=== PATIENT | female | born 1935 | race Two or more races ===

== ENCOUNTER 2017-02-04 07:53 | Day surgery (SDC) ==
[2017-02-04] MEDS ORDERED: DIPRIVAN 20 ML VIAL IVP ONE (10:15)
[2017-02-04] MEDS ORDERED: VERSED ONE (10:15)
[2017-02-04 11:54] VITALS: BP 163/69; TEMP 97.1
--- NOTE | 2017-02-04 14:19 | OP ---
PROCEDURE: COLONOSCOPY TO THE CECUM. ENDOSCOPIST: Dante FITCH M.D. INDICATION: HISTORY OF POLYPS. INSTRUMENT: [email or web address]. MEDICATION: PER ANESTHESIA. PROCEDURE: The patient was positioned for colonoscopy. The digital rectal exam was negative. The colonoscope was inserted through the anus and advanced to the cecum. The cecum was identified using the ileocecal valve and the appendiceal orifice as landmarks. The scope was slowly withdrawn through an adequately prepped colon. Careful inspection was made of each colonic segment as the scope is withdrawn in a circumferential fashion. Care was taken to inspect the proximal side of the ileocecal valve, haustral folds, flexures and rectal valves. Diverticula are seen scattered throughout the colon. The retroflex exam was otherwise negative. Withdrawal time was 7 minutes, 17 seconds. PLAN: 1. Given her age, I doubt that repeat colonoscopy is warranted. Will see her back as needed. CC: DR. CANDY KAPLAN
== END 2017-02-04 11:45 | disposition home or self-care (01) ==
LOC: SURG 07:53
PROVIDERS: ATTEND Internal Medicine Gastroenterology
DX: Z09 Encounter for follow-up examination after completed treatment for conditions other than malignant neoplasm (principal); Z86.010 Personal history of colon polyps; K57.30 Diverticulosis of large intestine without perforation or abscess without bleeding; E11.9 Type 2 diabetes mellitus without complications
CPT/HCPCS: 00810; G0105; 82962

== ENCOUNTER 2018-07-12 16:52 | Emergency (ER) ==
[2018-07-12 17:08] VITALS: BP 125/70; TEMP 98.4; BMI 24.7
--- NOTE | 2018-07-12 17:48 | ED.PDOC ---
General ED Provider: Dr. SOLIS ALLISON Chief Complaint: Non-specific Complaint Stated Complaint: possible insulin needle in the right abdominal wall(RLQ) Time Seen by Physician: 17:00 Mode of Arrival: Walk-In Information Source: Patient Exam Limitations: No limitations Primary Care Provider: RAMEZ PARKER Nursing and Triage Documentation Reviewed and Agree: Yes Does patient meet sepsis criteria?: Yes If yes, has appropriate treatment been initiated?: No System Inflammatory Response Syndrome: Not Applicable Sepsis Protocol: For patient's 13 years and over: Temp is 96.8 and below OR 101 and greater Pulse >90 BPM Resp >20/minute Acutely Altered Mental Status Are patient's symptoms suggestive of a new infection, such as: -Pneumonia -Skin, Soft Tissue -Endocarditis -UTI -Bone, Joint Infection -Implantable Device -Acute Abdominal Infection -Wound Infection -Meningitis -Blood Stream Catheter Infection -Unknown Trauma/Injury Complaint Exam - Trauma Complaint/Exam Location of Pain or Injury: Reports: Other (NEEDLE IN RLQ ABDOMINAL WALL) Onset/Duration: TODAY Symptoms Are: Resolved Current Severity: None Character: Reports: Dull Aggravating: Reports: None Alleviating: Reports: None Associated Signs and Symptoms: Denies: LOC, Confusion, Memory loss, Lethargy, Vomiting, Bleeding, Bruising, Swelling, Extremity disuse, Painful respiration, Hoarseness, Dysphagia, Hemoptysis, Significant blood loss Review of Systems - Review Of Systems Constitutional: Reports: No symptoms Eyes: Reports: No symptoms Ears, Nose, Mouth, Throat: Reports: No symptoms Respiratory: Reports: No symptoms Cardiac: Reports: No symptoms GI: Reports: No symptoms : Reports: No symptoms Musculoskeletal: Reports: No symptoms Skin: Reports: No symptoms Neurological: Reports: No symptoms Endocrine: Reports: No symptoms Hematologic/Lymphatic: Reports: No symptoms All Other Systems: Reviewed and Negative Past Medical History - Past Medical History Previously Healthy: Yes Endocrine: Reports: None Cardiovascular: Reports: None Respiratory: Reports: None Hematological: Reports: None Gastrointestinal: Reports: Other (LIVER TRANSPLANT) Genitourinary: Reports: None Neuro/Psych: Reports: None Musculoskeletal: Reports: None Cancer: Reports: None Last Menstrual Period: unknown - Surgical History General Surgical History: Reports: None - Family History Family History: Reports: None - Social History Smoking Status: Never smoker Hx Substance Use: No Alcohol Screening: None Physical Exam - Physical Exam Appearance: Well-appearing, No pain distress, Well-nourished Eyes: PAT, EOMI, Conjunctiva clear ENT: Ears normal, Nose normal, Oropharynx normal Respiratory: Airway patent, Breath sounds clear, Breath sounds equal, Respirations nonlabored Cardiovascular: RRR, Pulses normal, No rub, No murmur GI/: Soft, Nontender, No masses, Bowel sounds normal, No Organomegaly Musculoskeletal: Normal strength, ROM intact, No edema, No calf tenderness Skin: Warm, Dry, Normal color Neurological: Sensation intact, Motor intact, Reflexes intact, Cranial nerves intact, Alert, Oriented Psychiatric: Affect appropriate, Mood appropriate Interpretation - Radiology Interpretation Radiology Interpretation By: ED Physician (NO NEEDLE NOTED IN SOFT TISSUE OF THE ABDOMINAL WALL, PRIOR SURGICAL CLIPS ARE UNRELATED) Critical Care Note - Critical Care Note Total Time (mins): 0 Course - Course Orders, Labs, Meds: Orders Category Date Time Status KUB [ABDOMEN 1 VIEW] Stat RADS 07/12/18 17:23 Ordered Vital Signs: Temp Pulse Resp BP Pulse Ox 07/12/18 16:53 98.4 F 77 20 125/70 94 L Departure - Departure Time of Disposition: 17:48 Disposition: HOME SELF-CARE Discharge Problem: Normal exam Instructions: Normal Exam (ED) Condition: Good Pt referred to PMD for follow-up: Yes IPMP verified?: No Additional Instructions: Please call your Family Physician as soon as possible to schedule a follow-up appointment. Allergies/Adverse Reactions: Allergies codeine Adverse Reaction (Verified 07/12/18 17:01) gabapentin Adverse Reaction (Verified 07/12/18 17:01) Penicillins Adverse Reaction (Verified 07/12/18 17:01) Home Medications: Ambulatory Orders Allopurinol 100 mg PO 02/04/17 Citalopram Hydrobromide [Citalopram HBr] 20 mg PO 02/04/17 Ergocalciferol (Vitamin D2) [Vitamin D2] 50,000 unit PO WEEKLY 02/04/17 Furosemide 20 mg PO 3 TIMES PER WEEK 02/04/17 Insulin Aspart [Novolog Insulin] 5 unit SUBCUT TID 02/04/17 Insulin Glargine,Hum.rec.anlog [Lantus] 10 unit SUBCUT BEDTIME 02/04/17 Risperidone [Risperdal] 0.25 mg PO 02/04/17 Rosuvastatin Calcium 20 mg PO 02/04/17 Sirolimus 1 mg PO 02/04/17
--- NOTE | 2018-07-13 08:54 | DI ---
EXAM: Single view the abdomen. History: Foreign body needle. Comparison: CT abdomen pelvis 01/30/2016 Findings: Nonspecific but nonobstructive bowel gas pattern. No gross free intraperitoneal air. Deg enerative changes of the spine. Surgical clips are seen in the right abdomen and are stable. There is radiopaque tubing seen projecting over the right lateral abdomen and is stable. No radiopaque obj ects identified that would resemble a needle. Impression: No radiopaque objects identified that would resemble a needle.
== END 2018-07-12 17:55 | disposition home or self-care (01) ==
LOC: ED 16:52
DX: Z71.1 Person with feared health complaint in whom no diagnosis is made (principal)
CPT/HCPCS: 99282

== ENCOUNTER 2018-11-20 05:32 | Emergency (ER) ==
[2018-11-20 05:47] VITALS: BP 159/66; TEMP 97.4; BMI 25.4
--- NOTE | 2018-11-20 05:47 | ED.PDOC ---
General ED Provider: Dr. TOBIN CHRISTENSEN Chief Complaint: Hip Pain/Injury Stated Complaint: Patient states that she fell going to the bathroom. She live in assited living usually uses a wheel chair to ambulate. Has not tried to bear weight since the fall. come by ambulance. States that the pain is at 3/10. Has not taken anything for pain. Time Seen by Physician: 05:45 Mode of Arrival: Ambulance Information Source: Patient, Family Exam Limitations: No limitations Primary Care Provider: RAMEZ PARKER Nursing and Triage Documentation Reviewed and Agree: Yes Does patient meet sepsis criteria?: No System Inflammatory Response Syndrome: Not Applicable Sepsis Protocol: For patient's 13 years and over: Temp is 96.8 and below OR 101 and greater Pulse >90 BPM Resp >20/minute Acutely Altered Mental Status Are patient's symptoms suggestive of a new infection, such as: -Pneumonia -Skin, Soft Tissue -Endocarditis -UTI -Bone, Joint Infection -Implantable Device -Acute Abdominal Infection -Wound Infection -Meningitis -Blood Stream Catheter Infection -Unknown Musculoskeletal Complaint Exam - Hip/Pelvis Complaint/Exam Location of Pain: Reports: Left Mechanism of Injury: Reports: Trauma (fall) Onset/Duration: just prior to arrival Review of Systems - Review Of Systems Constitutional: Reports: No symptoms Eyes: Reports: No symptoms Ears, Nose, Mouth, Throat: Reports: No symptoms Respiratory: Reports: No symptoms Cardiac: Reports: No symptoms GI: Reports: No symptoms : Reports: No symptoms Musculoskeletal: Reports: Joint pain Skin: Reports: No symptoms Neurological: Reports: Anxiety Endocrine: Reports: No symptoms Hematologic/Lymphatic: Reports: No symptoms All Other Systems: Reviewed and Negative Past Medical History - Past Medical History Previously Healthy: Yes Endocrine: Reports: DM 2 Cardiovascular: Reports: None Respiratory: Reports: None Hematological: Reports: None Gastrointestinal: Reports: Liver, Other (LIVER TRANSPLANT) Genitourinary: Reports: None Neuro/Psych: Reports: None Musculoskeletal: Reports: Arthritis Cancer: Reports: None - Surgical History General Surgical History: Reports: Hysterectomy, Appendectomy, Cholecystectomy, Other (Liver transplant 2000, cataracts both eyes) - Family History Family History: Reports: None - Social History Smoking Status: Never smoker Hx Substance Use: No Alcohol Screening: None Physical Exam - Physical Exam Appearance: Well-appearing, No pain distress, Well-nourished Eyes: PAT, EOMI, Conjunctiva clear ENT: Ears normal, Nose normal, Oropharynx normal Respiratory: Airway patent, Breath sounds clear, Breath sounds equal, Respirations nonlabored Cardiovascular: RRR, Pulses normal, No rub, No murmur GI/: Soft, Nontender, No masses, Bowel sounds normal, No Organomegaly Musculoskeletal: Normal strength, ROM intact, No edema, No calf tenderness Skin: Warm, Dry, Normal color Neurological: Sensation intact, Motor intact, Reflexes intact, Cranial nerves intact, Alert, Oriented Psychiatric: Anxious Interpretation - Radiology Interpretation Radiology Interpretation By: Radiologist Radiology Results: No acute changes (chronic cystitis, Degenerative disk findings) Exam Interpreted: CT Scan (Lumber and Pelvis ) Critical Care Note - Critical Care Note Total Time (mins): 0 Course - Course Orders, Labs, Meds: Orders Category Date Time Status CT LUMBAR SPINE W/O CONTRAST Stat RADS 11/20/18 05:[address] PELVIS W/O CONTRAST Stat RADS 11/20/18 05:43 Completed Vital Signs: Temp Pulse Resp BP Pulse Ox 11/20/18 05:41 97.4 F L 63 22 159/66 H 98 Departure - Departure Time of Disposition: 06:49 Disposition: HOME SELF-CARE Discharge Problem: Back pain Qualifiers: Back pain location: low back pain Chronicity: acute Back pain laterality: left Sciatica presence: without sciatica Qualified Code(s): M54.5 - Low back pain Low back sprain Qualifiers: Encounter type: initial encounter Qualified Code(s): S33.5XXA - Sprain of ligaments of lumbar spine, initial encounter Instructions: Lower Back Exercises (ED) Condition: Stable Pt referred to PMD for follow-up: Yes IPMP verified?: No Additional Instructions: Take Tylenol as needed for pain Follow up with PCP in three days. Allergies/Adverse Reactions: Allergies codeine Adverse Reaction (Verified 11/07/18 12:06) gabapentin Adverse Reaction (Verified 11/07/18 12:06) Penicillins Adverse Reaction (Verified 11/07/18 12:06) Home Medications: Ambulatory Orders Allopurinol 100 mg PO 02/04/17 Citalopram Hydrobromide [Citalopram HBr] 20 mg PO 02/04/17 Ergocalciferol (Vitamin D2) [Vitamin D2] 50,000 unit PO WEEKLY 02/04/17 Furosemide 20 mg PO 3 TIMES PER WEEK 02/04/17 Insulin Aspart [Novolog Insulin] 5 unit SUBCUT TID 02/04/17 Insulin Glargine,Hum.rec.anlog [Lantus] 10 unit SUBCUT BEDTIME 02/04/17 Risperidone [Risperdal] 0.25 mg PO 02/04/17 Rosuvastatin Calcium 20 mg PO 02/04/17 Sirolimus 1 mg PO 02/04/17 Disposition Discussed With: Patient, Family
--- NOTE | 2018-11-20 06:40 | CT ---
EXAM: CT lumbar spine without intravenous contrast 11/20/2018. Sagittal and coronal room for matted images obtained HISTORY: Lower back pain COMPARISON: 01/30/2016 FINDINGS: There is approximately 4 mm retrolisthesis of L3 on L4. This appears stable. Partial com pression fracture is present at the superior aspect of the L1 vertebral body. This appears stable. Multilevel chronic degenerative disc disease. Severe loss of disc height at L2-L3, L3-L4 and L4-L5. There is anterior and posterior osteophyte formation throughout these levels Multilevel chronic hypertrophic facet arthropathy. There is no evidence of acute fracture. L1-L2: Flattening the thecal sac. Moderate facet arthropathy. Mild bilateral neural foraminal sten osis. L2-L3 Broad-based posterior disc bulge/osteophyte complex. Moderate facet arthropathy. Mild bilate ral neural foraminal stenosis. L3-L4: Broad-based disc bulge/osteophyte complex. Moderate hypertrophic facet arthropathy. Mild ri ght and moderate left-sided neural foraminal stenosis. L4-L5: Posterior disc bulge flattens the thecal sac. The neural foramina appear patent. L5 L5-S1: Moderate hypertrophic facet arthropathy. Posterior disc bulge flattens the thecal sac. N o spinal stenosis. Mild left and moderate right neural foraminal stenosis. IMPRESSION: 1. No acute osseous abnormality of the lumbar spine 2. Chronic and degenerative findings as above.
--- NOTE | 2018-11-20 06:46 | CT ---
EXAM: CT abdomen pelvis without intravenous contrast 11/20/2018. Sagittal and coronal reformatted i mages obtained HISTORY: Hip pain. Fall COMPARISON: 01/30/2016 FINDINGS: The visualized portion of bowel shows no evidence of obstruction. The abdomen is not incl uded. There is mucosal thickening of the urinary bladder with extensive perivesicular stranding. Th e appearance is suggestive of cystitis. No free air or free fluid. The sacrum appears intact. The right and left pelvis appear intact. The right and left proximal femur appear intact. There is no evidence of acute fracture or dislocati on. 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 Joint space narrowing with o steophyte formation. IMPRESSION: 1. Findings suggestive of cystitis. Mucosal thickening of the urinary bladder with extensive perive sicular stranding. 2. Chronic degenerative changes within the pelvis/hips. No acute post traumatic osseous abnormality .
== END 2018-11-20 07:12 | disposition home or self-care (01) ==
LOC: ED 05:32
DX: S33.5XXA Sprain of ligaments of lumbar spine, initial encounter (principal); W19.XXXA Unspecified fall, initial encounter; Z94.4 Liver transplant status
CPT/HCPCS: 99283

== ENCOUNTER 2018-12-04 18:33 | Emergency (ER) ==
[2018-12-04 18:37] VITALS: BP 150/76; TEMP 99.3; BMI 24.4
--- NOTE | 2018-12-04 19:10 | ED.PDOC ---
General ED Provider: Dr. TOBIN CHRISTENSEN Chief Complaint: Non-specific Complaint Stated Complaint: patient is an 82 year old female who comes the ER with complaints of lost needle on the lower abdomen after she used her syringe to administer insulin Time Seen by Physician: 19:08 Mode of Arrival: Walk-In Information Source: Patient Exam Limitations: No limitations Primary Care Provider: RAMEZ PARKER Nursing and Triage Documentation Reviewed and Agree: Yes Does patient meet sepsis criteria?: No System Inflammatory Response Syndrome: Not Applicable Sepsis Protocol: For patient's 13 years and over: Temp is 96.8 and below OR 101 and greater Pulse >90 BPM Resp >20/minute Acutely Altered Mental Status Are patient's symptoms suggestive of a new infection, such as: -Pneumonia -Skin, Soft Tissue -Endocarditis -UTI -Bone, Joint Infection -Implantable Device -Acute Abdominal Infection -Wound Infection -Meningitis -Blood Stream Catheter Infection -Unknown Skin Complaint Exam - Skin/Soft Tissue Complaint/Exam Onset/Duration: 1 day Symptoms Are: Still present Initial Severity: None Current Severity: None Location: lower abdomen Aggravating: Reports: None Alleviating: Reports: None Related History: Reports: Foreign body (insulin needle broke ) Related Surgical History: Reports: None Recent Exposure to Others w/Similar Symptoms: No Skin Findings: Present: Other (skin contusion from insulin injections. No obvious foriegn body identified. ) Joint Tenderness Present: No Differential Diagnoses: Foreign Body Review of Systems - Review Of Systems Constitutional: Reports: No symptoms Eyes: Reports: No symptoms Ears, Nose, Mouth, Throat: Reports: No symptoms Respiratory: Reports: No symptoms Cardiac: Reports: No symptoms GI: Reports: No symptoms : Reports: No symptoms Musculoskeletal: Reports: No symptoms Skin: Reports: No symptoms Neurological: Reports: Anxiety Endocrine: Reports: No symptoms Hematologic/Lymphatic: Reports: No symptoms All Other Systems: Reviewed and Negative Past Medical History - Past Medical History Previously Healthy: Yes Endocrine: Reports: DM 2 Cardiovascular: Reports: None Respiratory: Reports: None Hematological: Reports: None Gastrointestinal: Reports: Liver, Other (LIVER TRANSPLANT) Genitourinary: Reports: None Neuro/Psych: Reports: None Musculoskeletal: Reports: Arthritis Cancer: Reports: None Last Menstrual Period: HYSTERECTOMY - Surgical History General Surgical History: Reports: Hysterectomy, Appendectomy, Cholecystectomy, Other (Liver transplant 2000, cataracts both eyes) - Family History Family History: Reports: None - Social History Smoking Status: Never smoker Hx Substance Use: No Alcohol Screening: None - Immunizations Tetanus Shot up to Date: Yes Physical Exam - Physical Exam Appearance: Ill-appearing Ill-appearing: Mild Pain Distress: None Neck: Supple Respiratory: Airway patent Cardiovascular: RRR, Pulses normal, No rub, No murmur GI/: Soft, Nontender (no obvious foreign body noted. ) Musculoskeletal: Normal strength Skin: Warm, Dry Psychiatric: Anxious Interpretation - Radiology Interpretation Radiology Interpretation By: Radiologist Radiology Results: Positive Exam Interpreted: CT Scan (right abdominal foreign body consistent with a needle. ) Re-Evaluation - Re-Evaluation Time of Re-Evaluation: 20:30 Status: Improved Vital Signs Stable: No Additional Comments: Blood glucose 93 Critical Care Note - Critical Care Note Total Time (mins): 0 Comments: while waiting for her CT scan for foreign body she stated that she felt hypoglycemic and blood glucose was noted to be low. Course - Course Hematology/Chemistry: 12/04/18 19:41 Orders, Labs, Meds: Lab Review 12/04/18 12/04/18 19:41 20:04 Sodium 134.5 Potassium 4.43 Chloride 103.4 Carbon Dioxide 26.3 Anion Gap 9.23 BUN 30.9 H Creatinine 1.12 Estimated GFR (MDRD) 46.00 BUN/Creatinine Ratio 27.58 Glucose 52.4 L Hemoglobin A1c 6.70 H Calcium 8.97 Orders Category Date Time Status ACCUCHECK (ED) [ED ACCUCHECK ASSESSMENT] .ONCE EMERGENCY 12/04/18 19:35 Active BMP [BASIC METABOLIC PANEL] Stat LAB 12/04/18 19:41 Completed HEMOGLOBIN A1C Stat LAB 12/04/18 20:[address] ABDOMEN/PELVIS WO CONTRAST Stat RADS 12/04/18 19:07 Completed Vital Signs: Temp Pulse Resp BP Pulse Ox 12/04/18 18:35 99.3 F 82 16 150/76 H 96 Departure - Departure Time of Disposition: 20:38 Disposition: HOME SELF-CARE Discharge Problem: Hypoglycemia, Soft tissues foreign body Instructions: Soft Tissue Foreign Body (ED), Hypoglycemia in a Person with Diabetes (ED) Condition: Stable Pt referred to PMD for follow-up: Yes IPMP verified?: No Additional Instructions: Make sure to eat before your Insulin. Follow up with PCP in 1 days to check on you insulin and to get referral to Surgery for Foreign body. Allergies/Adverse Reactions: Allergies codeine Adverse Reaction (Verified 12/04/18 18:37) gabapentin Adverse Reaction (Verified 12/04/18 18:37) Penicillins Adverse Reaction (Verified 12/04/18 18:37) Home Medications: Ambulatory Orders Allopurinol 100 mg PO DAILY 02/04/17 Citalopram Hydrobromide [Citalopram HBr] 20 mg PO DAILY 02/04/17 Ergocalciferol (Vitamin D2) [Vitamin D2] 50,000 unit PO WEEKLY 02/04/17 Furosemide 20 mg PO 3 TIMES PER WEEK 02/04/17 Insulin Aspart [Novolog Insulin] 5 unit SUBCUT TID 02/04/17 Insulin Glargine,Hum.rec.anlog [Lantus] 10 unit SUBCUT BEDTIME 02/04/17 Rosuvastatin Calcium 20 mg PO DAILY 02/04/17 Sirolimus 1 mg PO DAILY 02/04/17 Disposition Discussed With: Patient, Family
--- NOTE | 2018-12-04 20:03 | CT ---
EXAM: CT of the abdomen and pelvis without contrast. HISTORY: Foreign body localization. Evaluate for missing insulin needle. PROCEDURE: Contiguous axial CT images of the abdomen and pelvis without contrast with coronal and sa gittal reformats. FINDINGS: There is minimal bibasilar atelectasis. The liver is normal in appearance. The gallbladde r is surgically absent. The pancreas, spleen, left adrenal gland and kidneys are normal in appearanc e. There are calcifications in the right adrenal gland. The abdominal aorta is within normal limits in diameter. The appendix is not visualized. There is minimal diverticulosis of the colon. No edgar e fluid or free air in the abdomen or pelvis. The bladder is adequately filled and normal in appeara nce. The uterus is surgically absent. There are degenerative changes in the spine. There is a supervisor advice ke L1 compression fracture compared with CT of 01/30/2016. There are injection granulomas in the an terior abdominal wall and bilateral flanks. There are focal areas of soft tissue density in the subc utaneous tissues of the anterior pelvic wall consistent with injection sites. There is a linear meta llic foreign body measuring 2.6 x 0.2 cm on a single image in the subcutaneous tissues of the right l ateral pelvic wall consistent with a needle. Impression: 2.6 x 0.2 cm linear metallic foreign body in the subcutaneous tissues of the right latera l pelvic wall, consistent with a needle. Diverticulosis of the colon. Cholecystectomy. Hysterectomy. Chronic L1 compression fracture.
== END 2018-12-04 20:40 | disposition home or self-care (01) ==
LOC: ED 18:33
DX: S31.149A Puncture wound of abdominal wall with foreign body, unspecified quadrant without penetration into peritoneal cavity, initial encounter (principal); E11.649 Type 2 diabetes mellitus with hypoglycemia without coma; Z79.4 Long term (current) use of insulin; Z94.4 Liver transplant status
CPT/HCPCS: 36415; 80048; 82962; 83036; 99283